=== PATIENT | male | born 1970 | race Caucasian/White ===

== ENCOUNTER 2020-07-02 09:57 | Outpatient (CLI) | payer OTHER, SELFPAY ==
[2020-07-02 10:18] LABS: Basophils Absolute Auto 0.1 K/mm3 (0.0-0.1); Basophils Percent Auto 0.9 % (0.2-1.2); Eosinophils Absolute Auto 0.2 K/mm3 (0-0.3); Eosinophils Percent Auto 2.5 % (0-4.4); Hematocrit 42.2 % (42.0-52.0); Hemoglobin 13.9 g/dL (14.0-18.0); Immature Granulocyte Absolute 0.06 K/mm3 (0.00-0.031); Immature Granulocyte Percent A 0.6 % (0-0.5); Lymphocytes Absolute Auto 2.04 K/mm3 (0.9-3.2); Lymphocytes Percent Auto 21.3 % (18.3-44.2); Mean Corpuscular HGB Conc 32.9 g/dl (32-36); Mean Corpuscular Hemoglobin 30.5 pg (26-34); Mean Corpuscular Volume 92.5 fl (80-100); Mean Platelet Volume 10.1 fl (7.4-10.4); Monocytes Absolute Auto 0.8 K/mm3 (0.1-0.6); Monocytes Percent Auto 8.5 % (2.6-8.5); Neutrophils Absolute Auto 6.3 K/mm3 (1.3-6.7); Neutrophils Percent Auto 66.2 % (45.5-73.1); Platelet Count Result 288 k/mm3 (150-375); Red Blood Count 4.56 M/mm3 (4.6-6.20); Red Cell Distribution Width 13.2 % (11.5-14.5); White Blood Count 9.6 K/mm3 (4.5-10.0)
[2020-07-02 11:54] LABS: Cholesterol 237 mg/dL (0-200); HDL Direct 74 mg/dL; Triglycerides 80 mg/dL (<150)
[2020-07-02 11:58] LABS: Alanine Aminotransferase 19 U/L (4-50); Albumin Level 4.3 g/dL (3.5-5.1); Alkaline Phosphatase 66 U/L (38-126); Anion Gap 10.7 mmol/L (7-16); Aspartate Amino Transferase 31 U/L (17-59); Bilirubin,Total 0.3 mg/dL (0.2-1.3); Blood Urea Nitrogen 18 mg/dL (9-20); Calcium 8.9 mg/dL (8.4-10.2); Carbon Dioxide 28 mmol/L (22-30); Chloride 102 mmol/L (98-107); Estimated Glomerular Filt Rate > 60; Glucose 107 mg/dL (75-110); Lactate Dehydrogenase 465 U/L (313-618); Potassium 4.7 mmol/L (3.4-5.0); Sodium 136 mmol/L (137-145)
[2020-07-02 12:06] LABS: LDL Cholesterol Direct 151 mg/dL
[2020-07-02 12:26] LABS: Prostate Specific Antigen 0.6 ng/mL (< OR = 4.0)
[2020-07-04 18:11] LABS: GGT 16 U/L (3-95)
== END 2020-07-02 09:58 | disposition home or self-care (01) ==
PROVIDERS: Physician Assistant Medical; PCP Family Medicine; Visit Provider Internal Medicine Hematology & Oncology
DX: F10.10 Alcohol abuse, uncomplicated (principal); D72.823 Leukemoid reaction; R59.0 Localized enlarged lymph nodes; R07.9 Chest pain, unspecified; Z12.5 Encounter for screening for malignant neoplasm of prostate; Z13.220 Encounter for screening for lipoid disorders; E78.2 Mixed hyperlipidemia
CPT/HCPCS: 36415; 80053; 80061; 82977; 83615; 84153; 84443; 85025

== ENCOUNTER 2020-07-17 10:31 | Outpatient (CLI) | payer OTHER, SELFPAY ==
--- NOTE | 2020-07-17 10:41 | EST_ITS ---
Patient Info Name: Conrad García Age: 49 years : 1970 Gender: Male Ht: 68 in Wt: 135 lbs BSA: 1.71 m2 Exam Date: 07/17/2020 11:08 AM Exam Location: [facility] Stress Patient Status: Outpatient Admit Date: 07/17/2020 Staff Ordering Physician: Matilda Chatterjee PAC Attending Provider: Matilda Chatterjee Exercise Technologist: Sandeep Gongora RDCS, RT Exercise Physician: Montrell Funk DO Exam Type: CA stress test treadmill Study Info A treadmill exercise stress test was performed. Summary 1. 1. Negative Ender exercise stress test for ischemic ST changes by ECG criteria. 2. 2. Reduced functional capacity, achieving 7 METs of workload. 3. 3. Appropriate HR response to exercise. 4. 4. Appropriate HR recovery at 1 minute post exercise. 5. 5. No imaging with stress testing. 6. 6. Patient informed of the above results. Protocol: Ender Stress ECG Details Stage: REST Duration (min): 0 min : 46 sec Speed (mph): 0.0 Grade (%): 0 HR (bpm): 91 SBP (mmHg): 143 DBP (mmHg): 84 METS: --- Stage: REST Duration (min): 5 min : 5 sec Speed (mph): 0.0 Grade (%): 0 HR (bpm): 96 SBP (mmHg): 143 DBP (mmHg): 84 METS: --- Stage: STAGE 1 Duration (min): 1 min : 0 sec Speed (mph): 1.7 Grade (%): 10 HR (bpm): 121 SBP (mmHg): 143 DBP (mmHg): 84 METS: --- Stage: STAGE 1 Duration (min): 2 min : 0 sec Speed (mph): 1.7 Grade (%): 10 HR (bpm): 131 SBP (mmHg): 143 DBP (mmHg): 84 METS: --- Stage: STAGE 1 Duration (min): 3 min : 0 sec Speed (mph): 1.7 Grade (%): 10 HR (bpm): 138 SBP (mmHg): 198 DBP (mmHg): 94 METS: --- Stage: STAGE 2 Duration (min): 1 min : 0 sec Speed (mph): 2.5 Grade (%): 12 HR (bpm): 150 SBP (mmHg): 198 DBP (mmHg): 94 METS: --- Stage: STAGE 2 Duration (min): 2 min : 0 sec Speed (mph): 2.5 Grade (%): 12 HR (bpm): 156 SBP (mmHg): 214 DBP (mmHg): 95 METS: --- Stage: RECOVERY Duration (min): 1 min : 0 sec Speed (mph): 0.0 Grade (%): 0 HR (bpm): 139 SBP (mmHg): 214 DBP (mmHg): 95 METS: --- Stage: RECOVERY Duration (min): 1 min : 59 sec Speed (mph): 0.0 Grade (%): 0 HR (bpm): 123 SBP (mmHg): 214 DBP (mmHg): 95 METS: --- Stage: RECOVERY Duration (min): 3 min : 0 sec Speed (mph): 0.0 Grade (%): 0 HR (bpm): 114 SBP (mmHg): 196 DBP (mmHg): 74 METS: --- Stage: RECOVERY Duration (min): 3 min : 17 sec Speed (mph): 0.0 Grade (%): 0 HR (bpm): 109 SBP (mmHg): 196 DBP (mmHg): 74 METS: --- Rest HR: 96 bpm Peak HR: 156 bpm Rest Sys BP: 143 mmHg Peak Sys BP: 214 mmHg Max Pred HR: 169 bpm % Max Pred HR: 92 % Target HR: 144 bpm Max RPP: 33,384 bpm*mmHg Castle Score: -4 Termination Reason: Reached target heart rate or workload Cardiac Symptoms: Shortness of breath Max ST Seg Deviation: 1.80 mm
== END 2020-07-17 10:32 | disposition home or self-care (01) ==
PROVIDERS: PCP Family Medicine; Visit Provider Physician Assistant Medical
DX: R07.9 Chest pain, unspecified (principal)
CPT/HCPCS: 93017

== ENCOUNTER 2020-07-29 10:37 | Outpatient (CLI) | payer OTHER, SELFPAY ==
--- NOTE | 2020-08-03 17:30 | WPDHOLTEREM ---
Holter/Event Monitor Holter/Event Monitor Date of procedure: 07/29/20 Procedure Type: 24 hour holter monitor Indications: Palpitations Conclusion: 1. 24 hour holter monitor on 07/29/20. 2. Underlying rhythm is sinus rhythm. HR range 66-150 bpm; average HR 90 bpm. 3. There are 9 premature supraventricular complexes. No supraventricular tachycardia. 4. No premature ventricular complexes. No ventricular tachycardia. 5. No sinoatrial or atrioventricular blocks. No significant pauses greater than 2 seconds. 6. No symptoms available for correlation.
== END 2020-07-29 10:38 | disposition home or self-care (01) ==
PROVIDERS: PCP Family Medicine; Visit Provider Physician Assistant Medical
DX: R00.2 Palpitations (principal)
CPT/HCPCS: 93225; 93226